=== PATIENT | female | born 1960 | race Caucasian/White ===

== ENCOUNTER 2019-06-05 10:11 | Outpatient (CLI) | payer OTHER, SELFPAY ==
[2019-06-05 10:26] LABS: Basophils Absolute Auto 0.05 K/mm3 (0.00-0.10); Basophils Percent Auto 0.7 % (0.0-1.0); Eosinophils Absolute Auto 0.22 K/mm3 (0.02-0.50); Eosinophils Percent Auto 3.1 % (1.0-6.0); Hematocrit 36.7 % (35.0-49.0); Hemoglobin 12.3 g/dL (12.0-15.0); Immature Granulocyte Absolute 0.03 K/mm3 (0.00-0.00); Immature Granulocyte Percent A 0.4 % (0.0-0.0); Lymphocytes Percent Auto 28.4 % (18.0-42.0); Mean Corpuscular HGB Conc 33.5 g/dL (32.0-36.0); Mean Corpuscular Hemoglobin 27.8 pg (27.0-31.0); Mean Platelet Volume 8.9 fl (9.2-11.8); Monocytes Percent Auto 8.5 % (2.0-11.0); Neutrophils Absolute Auto 4.1 K/mm3 (1.7-7.2); Neutrophils Percent Auto 58.9 % (50.0-70.0); Platelet Count Result 319 K/mm3 (150-420); Red Blood Count 4.42 M/mm3 (4.20-5.40); Red Cell Distribution Width 13.7 % (11.6-14.4)
[2019-06-05 10:41] LABS: Hemoglobin A1C 7.6 % (<5.7)
[2019-06-05 11:31] LABS: Alanine Aminotransferase 33 U/L (14-59); Alkaline Phosphatase 62 U/L (46-116); Anion Gap 15.7 mmol/L (7-16); Aspartate Amino Transferase 16 U/L (15-37); Bilirubin,Total 0.4 mg/dL (0.00-1.00); Blood Urea Nitrogen 22 mg/dL (7-18); Calcium 9.8 mg/dL (8.5-10.1); Carbon Dioxide 28 mmol/L (21-32); Chloride 100 mmol/L (98-108); Cholesterol 186 mg/dL (0-200); Estimated Glomerular Filt Rate > 60; Glucose 157 mg/dL (70-99); HDL Direct 56 mg/dL (40-60); LDL Cholesterol Calculated 76 mg/dL (<130); Osmolality Calculated 294 mOsm/kg (285-295); Potassium 4.7 mmol/L (3.5-5.1); Sodium 139 mmol/L (136-145); Thyroid Stimulating Hormone 3.66 uIU/mL (0.36-3.74); Total Protein 7.6 g/dL (6.4-8.2); Triglycerides 268 mg/dL (0-150)
== END 2019-06-05 10:12 | disposition home or self-care (01) ==
LOC: CHSLAB 10:15
PROVIDERS: PCP Nurse Practitioner Family; Visit Provider Nurse Practitioner Family
DX: E11.59 Type 2 diabetes mellitus with other circulatory complications (principal); I10 Essential (primary) hypertension; E03.9 Hypothyroidism, unspecified
CPT/HCPCS: 36415; 80053; 80061; 83036; 84443; 85025

== ENCOUNTER 2019-12-17 09:58 | Outpatient (CLI) | payer OTHER, SELFPAY ==
[2019-12-18 02:12] LABS: SARS-CoV-2 RNA PCR Positive
== END 2019-12-17 09:59 | disposition home or self-care (01) ==
PROVIDERS: PCP Nurse Practitioner Family; Visit Provider Nurse Practitioner Family
DX: U07.1 COVID-19 (principal); R51 Headache; R53.83 Other fatigue; R05 Cough
CPT/HCPCS: 87635; C9803; U0003

== ENCOUNTER 2020-05-17 08:12 | Outpatient (CLI) | payer OTHER, SELFPAY ==
[2020-05-17 08:44] LABS: Hemoglobin A1C 6.8 % (<5.7)
[2020-05-17 09:37] LABS: Alanine Aminotransferase 46 U/L (14-59); Albumin Level 4.1 g/dL (3.4-5.0); Alkaline Phosphatase 59 U/L (46-116); Anion Gap 11 mmol/L (8-16); Aspartate Amino Transferase 23 U/L (15-37); Bilirubin,Total 0.4 mg/dL (0.00-1.00); Blood Urea Nitrogen 19 mg/dL (7-18); Calcium 9.9 mg/dL (8.5-10.1); Carbon Dioxide 28 mmol/L (21-32); Chloride 99 mmol/L (98-108); Cholesterol 183 mg/dL (0-200); Estimated Glomerular Filt Rate > 60; Glucose 171 mg/dL (70-99); HDL Direct 59 mg/dL (40-60); LDL Cholesterol Calculated 84 mg/dL (<130); Osmolality Calculated 292 mOsm/kg (285-295); Potassium 4.5 mmol/L (3.5-5.1); Sodium 138 mmol/L (136-145); Total Protein 7.6 g/dL (6.4-8.2); Triglycerides 200 mg/dL (0-150)
[2020-05-17 10:41] LABS: Thyroid Stimulating Hormone Reflex 1.19 u/IU/mL (0.36-3.74)
[2020-05-17 16:08] LABS: Creatinine Urine 121.57 mg/dL (40-278); MALB Creatinine Ratio 10.6 mg/g (0-30); Microalbumin Urine Random < 13.0 mg/L
== END 2020-05-17 08:13 | disposition home or self-care (01) ==
PROVIDERS: PCP Family Medicine; Visit Provider Family Medicine
DX: E11.9 Type 2 diabetes mellitus without complications (principal); E03.9 Hypothyroidism, unspecified
CPT/HCPCS: 36415; 80053; 80061; 82043; 83036; 84443

== ENCOUNTER 2020-05-18 10:03 | Outpatient (CLI) | payer OTHER, SELFPAY ==
--- NOTE | 2020-05-19 12:19 | WPDPFTINT ---
PFT Interpretation PFT Interpretation: DOS: 05/18/2020 REQUESTING: Eliud Browning MD REASON FOR TESTING: post COVID PULMONARY FUNCTION TESTS Results are reliable and reproducible. Spirometry: FEV1 101%, FVC 96%, FEV1% is 103%, normal. No change with bronchodilator. Lung volumes: TLC 97%. RV78%. Normal RV/TLC ratio. No air trapping. Raw 102%, normal. Diffusion: DLCO 80%, normal. Flow volume loop: Normal. IMPRESSION: Normal spirometry, lung volumes, airway resistance and diffusion. No change with bronchodilator. Vero Yun MD
== END 2020-05-18 10:04 | disposition home or self-care (01) ==
LOC: CHSCARD 10:05
PROVIDERS: PCP Family Medicine; Visit Provider Family Medicine
DX: J45.909 Unspecified asthma, uncomplicated (principal); Z86.16 Personal history of COVID-19
CPT/HCPCS: 94060; 94726; 94729

== ENCOUNTER 2020-05-22 07:23 | Outpatient (CLI) | payer OTHER, SELFPAY ==
--- NOTE | 2020-05-22 09:00 | EST_ITS ---
Patient Info Name: Fidelina Solis Age: 60 years : 1960 Gender: Female Ht: 67 in Wt: 260 lbs BSA: 2.42 m2 HR: 84 bpm BP: 108 / 48 mmHg Heart Rhythm: Sinus Rhythm Technical Quality: Excellent Exam Date: 05/22/2020 8:50 AM Exam Location: [facility] Patient Status: Outpatient Admit Date: 05/22/2020 Staff Ordering Physician: Eliud Browning DO Attending Provider: Eliud Browning DO Exercise Technologist: Eneida Jaramillo CRT Exercise Physician: Tonya Locke CEP Exam Type: CA stress marilyn w NM Study Info Indications Dyspnea - A nuclear stress test was performed. History/Risk Factors Hypertension: Yes Chronic Lung Disease: Yes Diabetes Mellitus: Yes History/Risk Factors Dyspnea. Summary 1. 1. Negative lexiscan stress test for ischemic ST changes by ECG criteria. 2. 2. Stable hemodynamics throughout the test. 3. 3. Nuclear scan to follow and will be reported separately. Please correlate with it. Protocol: LEXISCAN Stress ECG Details Stage: REST Duration (min): 2 min : 55 sec HR (bpm): 87 SBP (mmHg): 108 DBP (mmHg): 48 Stage: REST Duration (min): 7 min : 40 sec HR (bpm): 83 SBP (mmHg): 108 DBP (mmHg): 48 Stage: STAGE 1 Duration (min): 0 min : 9 sec HR (bpm): 84 SBP (mmHg): 108 DBP (mmHg): 48 Stage: RECOVERY Duration (min): 0 min : 50 sec HR (bpm): 105 SBP (mmHg): 108 DBP (mmHg): 48 Stage: RECOVERY Duration (min): 1 min : 50 sec HR (bpm): 97 SBP (mmHg): 91 DBP (mmHg): 52 Stage: RECOVERY Duration (min): 2 min : 50 sec HR (bpm): 95 SBP (mmHg): 98 DBP (mmHg): 55 Stage: RECOVERY Duration (min): 3 min : 50 sec HR (bpm): 91 SBP (mmHg): 99 DBP (mmHg): 60 Stage: RECOVERY Duration (min): 4 min : 50 sec HR (bpm): 94 SBP (mmHg): 99 DBP (mmHg): 62 Stage: RECOVERY Duration (min): 5 min : 50 sec HR (bpm): 90 SBP (mmHg): 101 DBP (mmHg): 64 Stage: RECOVERY Duration (min): 6 min : 8 sec HR (bpm): 92 SBP (mmHg): 101 DBP (mmHg): 64 Rest HR: 83 bpm Peak HR: 105 bpm Rest Sys BP: 108 mmHg Peak Sys BP: 101 mmHg Max Pred HR: 160 bpm % Max Pred HR: 66 % Target HR: 136 bpm Max RPP: 10,605 bpm*mmHg Termination Reason: Completion of Protocol Cardiac Symptoms: Chest discomfort Total Time: 0 min : 9 sec Rest Cavazos BP: 48 mmHg Peak Cavazos BP: 64 mmHg Total Dose: 0.4 mg Resting ECG Normal sinus rhythm, low voltage in precordial leads. Stress ECG No ST-T changes. Arrhythmias No arrhythmias were observed during the examination. Report Signatures
--- NOTE | 2020-05-22 09:57 | WPDCARIOSTRE ---
Nuclear Stress Test INDICATIONS Indications: Chest pain PROCEDURE Procedure Performed: Myocardial Perf Spect-Multi Procedure: Patient was injected with Lexiscan bolus and after injection, she was injected with 34.9 mCi of cardiolyte. Multiple tomographic images were obtained. These are of good quality. There is evidence of large size, severe anterior perfusion defect on stress imaging. A separate resting images were obtained after patient was injected with 10.7 mCi of cardiolyte. Multiple tomographic images were obtained. These are of good quality. There is evidence of small size, moderate severity anterior perfusion defect on rest imaging. CONCLUSION Conclusion: 1. Abnormal myocardial perfusion imaging demonstrating worsened perfusion defect suggestive of robin-infarct ischemia involvling anterior wall. 2. Left ventriculogram demonstrates normal ejection fraction of 65%. No wall motion abnormalities. 3. TID score is normal at 1.03.
== END 2020-05-22 07:24 | disposition home or self-care (01) ==
LOC: CHSIMG 07:27
PROVIDERS: PCP Family Medicine; Visit Provider Family Medicine
DX: R06.02 Shortness of breath (principal); R68.89 Other general symptoms and signs; R07.9 Chest pain, unspecified; R06.00 Dyspnea, unspecified
CPT/HCPCS: 78452; 93017; A9502; J2785

== ENCOUNTER → 2020-06-16 00:16 | Outpatient (CLI) | payer OTHER, SELFPAY ==
[2020-06-16 17:44] LABS: SARS-CoV-2 RNA PCR Positive
== END ==
PROVIDERS: PCP Family Medicine; Visit Provider Specialist
DX: U07.1 COVID-19 (principal)
CPT/HCPCS: C9803; U0003; U0005

== ENCOUNTER 2020-06-26 01:51 | Day surgery (SDC) | payer OTHER, SELFPAY ==
[2020-06-16 18:05] VITALS: BMI 40.8
[2020-06-26] VITALS (16 sets, daily range): BP systolic 98–133; BP diastolic 60–103; PULSE 66–91; RESP 14–19; TEMP 35.8–36.8; O2SAT 96–100; BMI 41.8
[2020-06-26 07:55] LABS: Basophils Absolute Auto 0.1 K/mm3 (0.0-0.1); Basophils Percent Auto 0.7 % (0.2-1.2); Eosinophils Absolute Auto 0.2 K/mm3 (0-0.3); Hematocrit 37.8 % (37.0-47.0); Hemoglobin 12.6 g/dL (12.0-15.0); Immature Granulocyte Absolute 0.03 K/mm3 (0.00-0.031); Immature Granulocyte Percent A 0.4 % (0-0.5); Lymphocytes Absolute Auto 1.94 K/mm3 (0.9-3.2); Lymphocytes Percent Auto 28.2 % (18.3-44.2); Mean Corpuscular HGB Conc 33.3 g/dl (32-36); Mean Corpuscular Hemoglobin 27.3 pg (26-34); Mean Corpuscular Volume 81.8 fl (80-100); Mean Platelet Volume 8.8 fl (7.4-10.4); Monocytes Absolute Auto 0.5 K/mm3 (0.1-0.6); Monocytes Percent Auto 7.4 % (2.6-8.5); Neutrophils Absolute Auto 4.2 K/mm3 (1.3-6.7); Neutrophils Percent Auto 60.3 % (45.5-73.1); Platelet Count Result 310 k/mm3 (150-375); Red Blood Count 4.62 M/mm3 (4.2-5.4); Red Cell Distribution Width 14.1 % (11.5-14.5); White Blood Count 6.9 K/mm3 (4.5-10.0)
[2020-06-26 08:05] LABS: INR 0.9; Prothrombin Time 12.3 Seconds (11.1-14.7)
[2020-06-26 08:07] LABS: Anion Gap 9 mmol/L (8-16); Blood Urea Nitrogen 26 mg/dL (7-17); Calcium 10.1 mg/dL (8.4-10.2); Carbon Dioxide 28 mmol/L (22-30); Chloride 99 mmol/L (98-107); Estimated CRCL calculation 88 ml/min; Estimated Glomerular Filt Rate > 60; Glucose 147 mg/dL (65-105); Potassium 4.5 mmol/L (3.4-5.0); Sodium 136 mmol/L (137-145)
--- NOTE | 2020-06-26 08:44 | WPDMODSED ---
Moderate Sedation Note-Pt Data Patient Data Diagnosis: Exertional dyspnea morbid obesity previous bowden virus abnormal nuclear stress test Present Complaint: this is a 60-year-old woman who is morbidly obese who had bowden virus back in the fall of 2019. Since then she has been reporting shortness of breath with activity. She had a nuclear stress test that was electrocardiographically negative but apparently there were some scintigraphic abnormalities prompting recommendation to perform an angiogram Procedure to be performed/Plan: left heart catheterization Allergies Allergy/AdvReac Type Severity Reaction Status Date / Time Penicillins Allergy Intermediate rash Verified 06/09/20 09:59 Home Medications Medication Instructions Recorded Confirmed Type aspirin 81 mg tablet,delayed 81 mg PO DAILY 06/09/20 06/16/20 History release atorvastatin 20 mg PO DAILY 06/16/20 06/16/20 History cetirizine [Zyrtec] 10 mg PO DAILY PRN 06/16/20 06/16/20 History cholecalciferol (vitamin D3) 50 mcg PO DAILY 06/16/20 06/16/20 History [Vitamin D3] levothyroxine 125 mcg PO DAILY 06/16/20 06/16/20 History lisinopril-hydrochlorothiazide 1 tablet PO DAILY 06/16/20 06/16/20 History metformin 1,000 mg PO BID 06/16/20 06/16/20 History oogzuboinsdf-axp-yurl-FA-vit K 1 tablet PO DAILY 06/16/20 06/16/20 History [Adults Multivitamin] omega-3 fatty acids [[place] 3 Fish 1,000 mg PO DAILY 06/16/20 06/16/20 History Oil Concentrate] sertraline 100 mg PO DAILY 06/16/20 06/16/20 History Current Medications: Active Medications Sodium Chloride (Normal Saline Iv) 500 mls @ 100 mls/hr IV CONT .Q5H TJ Sedation/Anesthesia: No previous sedation/anesthesia problems (including family history). [facility] Past Medical History Medical History COVID-19 Hyperlipidemia associated with type 2 diabetes mellitus Hypertension associated with diabetes Hypothyroidism Major depressive disorder, recurrent Obesity, Class II, BMI 35-39.9 Osteoarthritis of knee Reactive airway disease Type 2 diabetes mellitus Surgical History Surgical History History of adenoidectomy History of bilateral tubal ligation History of knee replacement LT total knee History of tonsillectomy Family History Family History Mother Depression Hypertension Family history of coronary artery disease Father Family history of coronary artery disease Sibling Family history of coronary artery disease Other Diabetes mellitus Family history of allergic disorder Family history of diabetes mellitus in first degree relative Family history of rheumatoid arthritis Social History Social History Smoking status: Never smoker Alcohol intake: current Alcohol use details: very rarely Substance use: never Substance use type: does not use Living arrangements: alone 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 Gender identity (if verbalized by the patient): Female Spiritual care concerns: No Mod Sed Physical Exam Physical Exam Pre Procedural Exam: Normal: Throat, Airway, Lungs, Heart Size, Heart Rate, Heart Rhythm, Neuro Exam and Extremities and Variation: Appearance ( pleasant obese woman in no distress) Hours since solid foods: 12 Hours since liquid intake: 12 Internal Medicine - PN: Obj Da Vital Signs Vital Signs: Vital Signs - 24 hr 06/26/20 07:45 Temperature 36.8 C Pulse Rate 91 Respiratory Rate 19 Blood Pressure 133/103 H Pulse Oximetry 100 Meds/Results Medications: Active Medications Generic Name Dose Route Start Last Admin Trade Name Freq PRN Reason Stop Dose Admin Sodium Chloride 500 mls @ 100 mls/hr 06/26/20 07:40 Normal Saline Iv IV CONT .Q5H TJ Labs CBC & Chem 7: 06/26/20 07:47
--- NOTE | 2020-06-26 09:11 | P.PCNCC_ITS ---
Cardiac Cath Procedure Note Date of procedure:: 06/26/20 Performing physician:: Oscar Mills MD Indication:: abnormal nuclear stress test morbid obesity exertional dyspnea Brief clinical history:: this is a 60-year-old woman without any prior history of known coronary artery disease. She is undergoing evaluation because of SON. Her symptoms began in the fall following bowden virus infection. Nuclear stress test suggests a subtle anterior wall perfusion abnormality. Electrocardiographic findings were negative. Procedure Procedure performed:: Left ventriculography coronary angiography Sedation/Medication given:: fentanyl 50 mg Versed 2 mg case start time 8:54 a.m. case end time 9:08 a.m. Access site:: right femoral artery Estimated blood loss:: 10-15 cc Procedure note:: patient was brought to the cardiac catheterization lab in the postabsorptive state where the right femoral triangle with prepared and draped in the usual fashion. Anesthesia was provided with 1% lidocaine infiltrated locally. Using the modified Seldinger technique a 5 [place] vascular sheath was placed into the right femoral artery. After this left heart catheterization was carried out. A 5 [place] angled pigtail catheter was used to measure left-sided hemodynamics as well as to injected LV g in the SHELLEY projection. This catheter was then removed. A 5 [place] FL4 catheter was used to engage inject the left coronary artery and a 5 [place] JR4 catheter was used to engage inject the right coronary artery. The cineangiograms were then reviewed. An angiogram was done of the femoral artery through the sheath after which it was determined the sheath will be removed with direct manual compression. Procedure was well tolerated there were no apparent complications he left the labeling associate with no evidence of a groin hematoma. Findings:: Hemodynamics: Central aortic pressure is 116/66 left ventricle 116/3 end-diastolic pressure 16 there is no systolic gradient on pullback across the aortic valve. Left ventricle: The LV is normal in size all segments contract appropria tely the global ejection fraction is 50-55% by visual estimation. There was no regional wall motion abnormalities identified. The left main coronary artery is nicely patent the left anterior descending is a medium caliber artery extending down to around the apex. The LAD and its branches are angiographically free of disease. The circumflex is a large caliber artery and gives rise to marginal branches and a large posterior branch as well. The trunk of the circumflex has minimal luminal irregularities but no flow-limiting disease. Right coronary artery is a large caliber vessel dominant to the posterior circulation. The right coronary artery has some ectatic enlargement in the 2nd portion and some mild stenosis prior to that. There is no view where this appears to be flow limiting angiographically this represents about 30% stenosis. Conclusion:: 1. right coronary dominant circulation with mild plaquing in the circumflex trunk and mid RCA but with no flow-limiting disease 2. angiographically not diseased LAD with no findings that would explain an anterior perfusion deficit on her nuclear stress test. 3. Preserved left ventricular systolic function Oscar Mills MD [facility]
--- NOTE | 2020-06-26 14:26 | SUR.PHASEII ---
Pt assisted to chair from bed at 1405. Pt denies any complaints. Dressing to R groin remain dry and intact. No signs of bleeding or hematoma noted. VSS. Will continue to monitor.
--- NOTE | 2020-06-26 14:44 | PM.DS ---
DS: Admitting Diagnosis Admitting Diagnosis Admitting Diagnosis: Exertional dyspnea? Ischemia equivalent recent Coronavirus morbid obesity DS: Discharge Diagnosis Discharge Diagnosis (1) CAD (coronary artery disease): Code(s): I25.10 - Atherosclerotic heart disease of [place] coronary artery without angina pectoris Status: Acute DS: Summary Hospital Course Reason for hospitalization: outpatient catheterization Hospital Course: this is a 60-year-old woman who has no previous history of coronary disease who has been reporting symptoms of problematic SON since she had bowden virus several months ago. Catheterization was recommended because a stress test that was done as an outpatient with modestly abnormal. The stress test suggested anterior wall ischemia. Procedure was done uneventfully right groin without any complication. She was found to have no disease in the left main or LAD. She did have modest diffuse plaquing in the trunk of her circumflex as well as a mild 30% RCA stenosis followed by some ectatic delete the dilated area. There were no lesions or disease that would explain an anterior nuclear defect and this was felt to be a false positive and her SON therefore does not appear to be mediated by myocardial ischemia. Left ventricular systolic function was found to be nicely preserved. See the separately dictated catheterization report for all these details. Following bed rest the patient is stable and appears to be a good candidate for discharge there is no evidence of groin hematoma. Status at Discharge Functional status at discharge: independent ambulation Time Spent with Patient Time attestation: Total time spent providing and/or coordinating discharge services: Time spent: Less than 30 minutes Exam Const: General: comfortable and no acute distress Other: Obese white female no apparent distress HENMT: Mouth: Yes moist mucous membranes Eyes: Sclera: sclerae normal Pupils: Equal, round and reactive pupils present Neck: Neck: supple and no JVD Resp: Effort & Inspection: normal respiratory effort Auscultation: clear to auscultation bilaterally Cardio: Rate: regular rate Rhythm: regular rhythm Other: PMI nondisplaced no murmur no gallop no rub GI: GI Palp: Yes Soft to palpation Auscultation: normal bowel sounds Skin: General skin exam: normal color Extrem: General: normal to inspection DS: Data Data Completed and Pending Labs on day of discharge: Labs from last 24 hours 06/26/20 06/26/20 06/26/20 07:47 07:47 07:47 WBC 6.9 RBC 4.62 Hgb 12.6 Hct 37.8 MCV 81.8 MCH 27.3 MCHC 33.3 RDW 14.1 Plt Count 310 MPV 8.8 Immature Gran % (Auto) 0.4 Neut % (Auto) 60.3 Lymph % (Auto) 28.2 [place] % (Auto) 7.4 Eos % (Auto) 3.0 Baso % (Auto) 0.7 Lymph # (Auto) 1.94 [place] # (Auto) 0.5 Eos # (Auto) 0.2 Baso # (Auto) 0.1 Abs Immat Gran (auto) 0.03 Absolute Neuts (auto) 4.2 Absolute Nucleated RBC 0.0 Nucleated RBC % 0.0 PT 12.3 INR 0.9 Sodium 136 L Potassium 4.5 Chloride 99 Carbon Dioxide 28 Anion Gap 9 BUN 26 H Creatinine 0.80 Estim Creat Clear Calc 88 Estimated GFR > 60 Glucose 147 H Calcium 10.1 Discharge Plan Discharge Patient Disposition: Home, Self-Care Patient Instructions: Moderate Sedation (DC), Left Heart Catheterization (DC) Stand Alone Forms: General Discharge Instructions Follow-up/Referrals: Oscar Mills MD [Physician] - Discharge Medications: No Action aspirin [Adult Aspirin Regimen] 81 mg tablet,delayed release (DR/EC) 81 mg PO DAILY RF: 0 cetirizine [Zyrtec] 10 mg Tablet 10 mg PO DAILY PRN (Reason: Allergy Symptoms) RF: 0 [place] 3 Fish Oil Concentrate Capsule 1,000 mg PO DAILY RF: 0 cholecalciferol (vitamin D3) [Vitamin D3] 50 mcg (2,000 unit) Tablet 50 mcg PO DAILY RF: 0 Adults Multivitamin 18 mg iron-400
--- NOTE | 2020-06-26 16:00 | SUR.PHASEII ---
REVIEWED DISCHARGE INSTRUCTIONS AND FOLLOW UP CARE W/ PT. QUESTIONS ANSWERED. VOICED UNDERSTANDING. R. GROIN SITE REMAINS SOFT, NONTENDER. NO BLEEDING OR HEMATOMA NOTED. GAUZE AND TEGADERM DRESSING C/D/I. R. PEDAL PULSE 3+ STRONG. VOICES NO C/O. NO DISTRESS NOTED. DISCHARGED HOME, OUT VIA WC, WITH ALL PERSONAL BELONGINGS AND DISCHARGE PACKET TO DAUGHTER'S WAITING CAR.
== END 2020-06-26 16:00 | disposition home or self-care (01) ==
PROVIDERS: PCP Family Medicine; Visit Provider Specialist
PROC: 4A023N7 Measurement of Cardiac Sampling and Pressure, Left Heart, Percutaneous Approach (ICD-10-PCS; CPT 93452; principal; 2020-06-26 08:30)
DX: I25.10 Atherosclerotic heart disease of native coronary artery without angina pectoris (principal); R94.39 Abnormal result of other cardiovascular function study; R06.09 Other forms of dyspnea; E66.01 Morbid (severe) obesity due to excess calories; Z68.41 Body mass index [BMI] 40.0-44.9, adult; E11.9 Type 2 diabetes mellitus without complications; E78.5 Hyperlipidemia, unspecified; E03.9 Hypothyroidism, unspecified; J45.909 Unspecified asthma, uncomplicated; F33.9 Major depressive disorder, recurrent, unspecified; Z86.16 Personal history of COVID-19; Z79.84 Long term (current) use of oral hypoglycemic drugs; Z79.82 Long term (current) use of aspirin
CPT/HCPCS: 36415; 80048; 85025; 85610; 93458; C1887; C1894; J1644; J2250; J3010; J7040

== ENCOUNTER 2020-07-11 07:55 | Outpatient (CLI) | payer OTHER, SELFPAY ==
--- NOTE | 2020-07-11 08:00 | ECHO_ITS ---
Patient Info Name: Fidelina Solis Age: 60 years : 1960 Gender: Female Ht: 67 in Wt: 260 lbs BSA: 2.42 m2 HR: 67 bpm BP: 122 / 75 mmHg Heart Rhythm: Sinus Rhythm Technical Quality: Fair Exam Date: 07/11/2020 7:59 AM Exam Location: [facility] Patient Status: Outpatient Admit Date: 07/11/2020 Staff Ordering Physician: Richy Hackett DO Director Risk: Yolanda Cruz RDCS Attending Provider: Richy Hackett DO Referring Physician: Lew CASTORENA; Exam Type: CA echo dop color flow w con Study Info Indications R06.00 - Dyspnea, unspecified Complete two-dimensional, color flow and Doppler transthoracic echocardiogram is performed with contrast to opacify the left ventricle and to improve the deliniation of the left ventricle endocardial borders. Strain analysis performed. Contrast/Agitated Saline Contrast/Ag. Saline: Definity Amount: 4.00 ml New IV Access: Antecubital Space and Left Site Condition: No extravasation, Site dressing applied and IV removed History/Risk Factors Hypertension: Yes Dyslipidemia: Yes Congenital Heart Disease (CHD): No Diabetic Therapy: Oral Peripheral Arterial Disease (PAD): No Myocardial Infarction (NV): No Chronic Lung Disease: Yes Obesity: Yes Renal Disease: No Coronary Artery Disease (CAD) No Congestive Heart Failure (CHF): No Cardiomyopathy/LV Systolic Dysfunction: No Diabetes Mellitus: Type II COPD: No Cerebrovascular Disease: No Family History: Diabetes Mellitus, Coronary Artery Disease Deep Vein Thrombosis (DVT): None Dialysis: None Frailty Scale (CSHA): 2: Well Cardiac Arrest: No Summary 1. Left ventricular chamber dimension is normal. 2. Definity contrast administered improved wall motion interpretation. 3. Left ventricular systolic function is normal, estimated at 55-60%. 4. The left ventricular diastolic function is grade I diastolic dysfunction. 5. E/e '9 is minimally elevated. 6. Global longitudinal strain is mildly abnormal at -16.5%. 7. Left atrial chamber dimension is mildly enlarged. 8. There is mild mitral valve regurgitation. 9. No pulmonary hypertension, estimated pulmonary arterial systolic pressure is 24 mmHg. Recommendations * Continue medical therapy for diabetes. Left Ventricle E/e '9 is minimally elevated. Global longitudinal strain is mildly abnormal at -16.5%. Definity contrast administered improved wall motion interpretation. Left ventricular chamber dimension is normal. Left ventricular systolic function is normal, estimated at 55-60%. The left ventricular diastolic function is grade I diastolic dysfunction. Right Ventricle Right ventricular chamber dimension is normal. Right ventricular systolic function is normal. Left Atria Left atrial chamber dimension is mildly enlarged. Right Atria Right atrial chamber dimension is normal. Aortic Valve The aortic valve is trileaflet. There is no aortic valve stenosis. There is no aortic valve regurgitation. Pulmonic Valve There is no pulmonic regurgitation. Mitral Valve There is no mitral valve stenosis. There is mild mitral valve regurgitation. Tricuspid Valve There is no tricuspid valve regurgitation. No pulmonary hypertension, estimated pulmonary arterial systolic pressure is 24 mmHg. Pericardium/Pleural There is no pericardial effusion. Inferior Vena Cava Normal inf
== END 2020-07-11 07:56 | disposition home or self-care (01) ==
LOC: CHSIMG 07:57
PROVIDERS: PCP Family Medicine; Visit Provider Internal Medicine Cardiovascular Disease
DX: R06.00 Dyspnea, unspecified (principal)
CPT/HCPCS: C8929

== ENCOUNTER 2021-01-08 09:29 | Outpatient (CLI) | payer OTHER, SELFPAY ==
--- NOTE | ~2021-01-08 | MMUS_ITS ---
EXAMINATION: MM diagnostic sumi BI w evan, US breast RT limited HISTORY: Follow-up right breast mass TECHNIQUE: Additional 3-D tomosynthesis images of the breasts were performed and synthetic 2-D images were generated. CAD analysis was submitted and interpreted. High resolution Limited right breast ult rasound was performed. COMPARISON: 01/19/2019 BREAST PARENCHYMAL COMPOSITION: Breast composed of scattered areas of fibroglandular density. FINDINGS: MAMMOGRAPHIC FINDINGS: There is a benign-appearing mass in the lower inner quadrant of the right breast, middle third contai talya layering milk of calcium. No mammographic evidence for malignancy in the left breast. ULTRASOUND: Limited right breast ultrasound: At 2:00 near the nipple there is a 5 mm cyst. At 3:00, 3 cm from the nipple, there is a 7 mm cyst corresponding to the mammographic finding. At 3:00, 3 cm from the nippl e, there is a benign intramammary lymph node measuring 6 mm. IMPRESSION: 1. No evidence for malignancy in either breast. Benign findings. 2. Routine yearly screening mammogram and regular clinical breast examination are recommended. BI-RADS Category 2: Benign finding(s). Reviewed, dictated and finalized at location B. IMPRESSION: 1. No evidence for malignancy in either breast. Benign findings. 2. Routine yearly screening mammogram and regular clinical breast examination a re recommended. BI-RADS Category 2: Benign finding(s).
== END 2021-01-08 09:30 | disposition home or self-care (01) ==
LOC: CHSIMG 09:31
PROVIDERS: PCP Family Medicine; Visit Provider Family Medicine
DX: R92.8 Other abnormal and inconclusive findings on diagnostic imaging of breast (principal)
CPT/HCPCS: 76642; 77062; 77066; G0279

== ENCOUNTER 2021-10-10 10:08 | Outpatient (CLI) | payer OTHER, SELFPAY ==
--- NOTE | 2021-10-10 11:30 | NEURO_ITS ---
Impression: # Complains of pain and numbness of hands. # Left moderate Carpal Tunnel Syndrome. # Right ulnar neuropathy across the elbow. # Normal needle/EMG exam. Nerve Conduction Studies Anti Sensory Summary Table Stim Site NR Peak (ms) P-T Amp (?V) Site1 Site2 Delta-P (ms) Dist (cm) Miah (m/s) Left Median Anti Sensory (2-3nd Digit) NO RESPONSE Wrist NR Wrist 2-3nd Digit 14.0 Wrist NR Wrist 2-3nd Digit 14.0 Right Median Anti Sensory (2-3nd Digit) Wrist 5.2 12.6 Wrist 2-3nd Digit 5.2 14.0 27 Wrist 5.3 11.5 Wrist 2-3nd Digit 5.2 14.0 27 Left Radial Anti Sensory (Base 1st Digit) Wrist 2.2 11.2 Wrist Base 1st Digit 2.2 0.0 Right Radial Anti Sensory (Base 1st Digit) Wrist 1.9 8.9 Wrist Base 1st Digit 1.9 0.0 Left Ulnar Anti Sensory (5th Digit) Wrist 2.3 22.5 Wrist 5th Digit 2.3 14.0 61 Right Ulnar Anti Sensory (5th Digit) Wrist 2.6 21.0 Wrist 5th Digit 2.6 14.0 54 Motor Summary Table Stim Site NR Onset (ms) O-P Amp (mV) Site1 Site2 Delta-0 (ms) Dist (cm) Miah (m/s) Left Median Motor (Abd Poll Brev) Wrist 6.3 1.5 Elbow Wrist 4.2 26.0 62 Elbow 10.5 0.4 Right Median Motor (Abd Poll Brev) Wrist 3.4 2.2 Elbow Wrist 5.0 27.0 54 Elbow 8.4 2.4 Left Ulnar Motor (Abd Dig Minimi) Wrist 2.7 6.2 A Elbow Wrist 4.5 27.0 60 A Elbow 7.2 4.6 Right Ulnar Motor (Abd Dig Minimi) Wrist 2.5 6.4 A Elbow Wrist 5.6 28.0 50 A Elbow 8.1 5.3 B Elbow Wrist 3.7 21.0 57 B Elbow 6.2 5.0 F Wave Studies NR F-Lat (ms) L-R F-Lat (ms) Left Median (Mrkrs) (Abd Poll Brev) 27.36 1.06 Right Median (Mrkrs) (Abd Poll Brev) 28.42 1.06 Left Ulnar (Mrkrs) (Abd Dig Min) 28.79 1.45 Right Ulnar (Mrkrs) (Abd Dig Min) 27.34 1.45 EMG Side Muscle Nerve Root Ins Act Fibs Amp Dur Recrt Comment Right 1stDorInt Ulnar C8-T1 Nml Nml Nml Nml Nml Right Ext Indicis Radial (Post Int) C7-8 Nml Nml Nml Nml Nml Right Ext Digitorum Radial (Post Int) C7-8 Nml Nml Nml Nml Nml Right BrachioRad Radial C5-6 Nml Nml Nml Nml Nml Right PronatorTeres Median C6-7 Nml Nml Nml Nml Nml Right Abd Poll Brev Median C8-T1 Nml Nml Nml Nml Nml Left 1stDorInt Ulnar C8-T1 Nml Nml Nml Nml Nml Left Ext Indicis Radial (Post Int) C7-8 Nml Nml Nml Nml Nml Left Ext Digitorum Radial (Post Int) C7-8 Nml Nml Nml Nml Nml Left BrachioRad Radial C5-6 Nml Nml Nml Nml Nml Left PronatorTeres Median C6-7 Nml Nml Nml Nml Nml Left Abd Poll Brev Median C8-T1 Nml Nml Nml Nml Nml MTDD
== END 2021-10-10 10:09 | disposition home or self-care (01) ==
PROVIDERS: PCP Family Medicine; Visit Provider Family Medicine
DX: G56.02 Carpal tunnel syndrome, left upper limb (principal); G56.21 Lesion of ulnar nerve, right upper limb
CPT/HCPCS: 95886; 95911

== ENCOUNTER 2021-11-04 18:05 | Outpatient (CLI) | payer OTHER, SELFPAY ==
--- NOTE | ~2021-11-04 | XR_ITS ---
XR wrist RT min 3V 11/04/2021 18:27 Indication: Right wrist pain Procedure: 4 views right wrist Comparison: No prior studies for comparison. Findings: There is osteoarthritis of the triscaphe, first carpal metacarpal, first MCP and IP joints. No fracture. No significant soft tissue abnormality. No foreign bodies. Impression: 1: Moderate polyarticular osteoarthritis. Reviewed, dictated and finalized at location A. Impression: 1: Moderate polyarticular osteoarthritis.
--- NOTE | ~2021-11-04 | XR_ITS ---
XR wrist LT min 3V 11/04/2021 18:26 Indication: Left wrist pain Procedure: 4 views left wrist Comparison: No prior studies for comparison. Findings: There is osteoarthritis of the triscaphe and first carpometacarpal joints. There is a corti cated ossific density ventral to the carpal bones on the oblique image, likely of no clinical signifi cance. No acute fracture or traumatic malalignment. Impression: 1: Polyarticular osteoarthritis of the wrist. Reviewed, dictated and finalized at location A. Impression: 1: Polyarticular osteoarthritis of the wrist.
== END 2021-11-04 18:06 | disposition home or self-care (01) ==
LOC: CHSIMG 18:08
PROVIDERS: PCP Family Medicine; Visit Provider Orthopaedic Surgery
DX: M25.532 Pain in left wrist (principal); M25.531 Pain in right wrist
CPT/HCPCS: 73110

== ENCOUNTER 2021-11-18 16:16 | Outpatient (CLI) | payer OTHER, SELFPAY ==
--- NOTE | 2021-11-18 16:19 | ECG_ITS ---
Measurements Intervals [place] Rate: 84 P: 47 MA: 152 QRS: 24 QRSD: 83 T: 56 QT: 362 QTc: 429 Interpretive Statements SINUS RHYTHM LOW QRS VOLTAGE IN PRECORDIAL LEADS [QRS DEFLECTION < 1.0 mV IN CHEST LEADS] OTHERWISE WITHIN NORMAL LIMITS NO PREVIOUS ECG AVAILABLE FOR COMPARISON Electronically Signed On 11-19-2021 17:15:26 CDT by Oscar Mills M.D.
[2021-11-18 16:43] LABS: Anion Gap 11 mmol/L (8-16); Blood Urea Nitrogen 27 mg/dL (7-18); Calcium 9.4 mg/dL (8.5-10.1); Carbon Dioxide 25 mmol/L (21-32); Chloride 97 mmol/L (98-108); Estimated Glomerular Filt Rate 47; Glucose 123 mg/dL (70-99); Osmolality Calculated 282 mOsm/kg (285-295); Potassium 4.8 mmol/L (3.5-5.1); Sodium 133 mmol/L (136-145)
== END 2021-11-18 16:17 | disposition home or self-care (01) ==
LOC: CHSLAB 16:19
PROVIDERS: PCP Family Medicine; Visit Provider Anesthesiology
DX: E11.9 Type 2 diabetes mellitus without complications (principal)
CPT/HCPCS: 36415; 80048; 93005

== ENCOUNTER 2021-11-22 00:44 | Day surgery (SDC) | payer OTHER, SELFPAY ==
[2021-11-14 09:23] VITALS: BMI 41.3
--- NOTE | 2021-11-14 09:35 | PC.NURSE ---
Report to the Outpatient Waiting Room, entrance under the green pavilion located off [facility], at time 0600 on date 11/22/21. OR Time: 0730. - You and your visitor will be asked to self-screen and do not enter if you have any COVID symptoms. - Only one visitor and NO children visitors are allowed at this time. - The patient visitor is requested to leave or wait in car when not with patient due to restrictions. - A mask is required within the hospital. Patients may have clear liquids (water, carbonated beverages, clear teas, apple juice) until 3 hours prior to surgery with a maximum of 20 ounces. - No food from midnight until time of surgery Take the following medications with a SIP of water the morning of surgery: LEVOTHYROXINE, SERTRALINE Medications to discontinue per physician: VITAMINS/SUPPLEMENTS Date to take last dose: 11/18/21 Please no make-up, nail bangladeshi, hairspray, perfume, deodorant, or body powder the day of surgery. No jewelry (including any body piercings) or valuables the day of surgery, leave them at home. Please take a shower or bath the night before, or the morning of, surgery with an antibacterial soap. Wear comfortable, loose fitting clothing. - Jewelry must be removed prior to entering the operating room. Rings and piercings that are not removed may be cut off. - The hospital will not accept responsibility for valuables. - Please leave all valuables, including medications, at home the day of surgery. If you are going home after surgery, a licensed day haul or farm charter bus driver must drive you home. - NO public transportation without another adult. - We recommend that an adult stay with you for 24 hours following discharge. - We also recommend that you do not drive, make important decision, drink alcoholic beverages, or take any drugs that were not prescribed by your health care provider for at least 24 hours after your discharge time. Follow any additional instructions given to you from your surgeon. If you or anyone in your household have experienced Covid symptoms in the past week, please notify your surgeon or the nurse liaison at the phone number below for possible testing. Telephone instructions given to PT - ARYAN GUDION and asked if any additional questions and then verbalized understanding. Patient advised to call surgeon office or pre surgery nurse liaison [phone] if any additional questions.
[2021-11-22] MEDS: ACETAMINOPHEN 500 MG TABLET 1000 MG PO (06:50)
[2021-11-22 06:51] LABS: Glucose Point of Care 146 mg/dl (65-105)
[2021-11-22] MEDS: LACTATED RINGERS 1,000 ML 30 ML IV CONT (07:00)
--- NOTE | 2021-11-22 07:10 | WPDANESEPPF ---
Anes - Initial Pre Proc Eval Procedure: Operation Date: 11/22/21 07:30 Proposed Procedures p Left Carpal Tunnel Release - Narciso Flor MD Date/Time: 11/22/21 07:10 Surgeon: Narciso Flor MD Pre Op Diagnosis: left carpal tunnel syndrome Patient Data Age: 61 Gender: F Height: 1.7 m Weight: 119.75 kg Allergies Allergy/AdvReac Type Severity Reaction Status Date / Time Penicillins Allergy Intermediate rash Verified 11/22/21 06:30 trazodone AdvReac Depression Verified 11/22/21 06:30 Home Medications Medication Instructions Recorded Confirmed Type aspirin 81 mg tablet,delayed 81 mg PO DAILY 06/09/20 11/22/21 History release (Adult Aspirin Regimen) cetirizine 10 mg tablet (Zyrtec) 10 mg PO DAILY PRN Allergy Symptoms 06/16/20 11/22/21 History cholecalciferol (vitamin D3) 50 50 mcg PO DAILY 06/16/20 11/22/21 History mcg (2,000 unit) tablet (Vitamin D3) multivit with minerals-iron 18 1 tablet PO DAILY 06/16/20 11/22/21 History mg-folic ac 400 mcg-vit K 25 mcg tablet (Adults Multivitamin) omega-3 fatty acids 1,000 mg PO DAILY 06/16/20 11/22/21 History atorvastatin 20 mg tablet See Rx Instructions .Route 09/25/21 11/22/21 Rx .COMPLEX #90 tabs levothyroxine 125 mcg tablet See Rx Instructions .Route 09/25/21 11/22/21 Rx .COMPLEX #90 tabs lisinopril 20 See Rx Instructions .Route 09/25/21 11/22/21 Rx mg-hydrochlorothiazide 12.5 mg .COMPLEX #90 tabs tablet metformin 1,000 mg tablet See Rx Instructions .Route 09/25/21 11/22/21 Rx .COMPLEX #180 tabs sertraline 100 mg tablet See Rx Instructions .Route 09/25/21 11/22/21 Rx .COMPLEX #90 tabs Laboratory Tests 11/22/21 06:48 POC Capillary Glucose 146 mg/dl H mg/dl (65-105) Patient hx anesthesia problems: none Family hx anesthesia problems: none Results Review: All pre-operative results and documents have been reviewed as part of the pre-operative evaluation. [facility] Past Medical History Medical History (Updated 11/08/21 @ 10:33 by Cynthia Nazario) Bilateral wrist pain CAD (coronary artery disease) Carpal tunnel syndrome Carpal tunnel syndrome, right COVID-19 Depression GERD (gastroesophageal reflux disease) Hyperlipidemia associated with type 2 diabetes mellitus Hypertension associated with diabetes Hypothyroidism IBS (irritable bowel syndrome) Left carpal tunnel syndrome Major depressive disorder, recurrent Obesity Obesity, Class II, BMI 35-39.9 Osteoarthritis of knee Reactive airway disease Type 2 diabetes mellitus Ulnar neuropathy at elbow of right upper extremity Surgical History Surgical History (Updated 11/08/21 @ 10:34 by Cynthia Nazario) History of adenoidectomy History of bilateral tubal ligation History of knee replacement LT total knee [address] Mondragon Rt TKA [address] Mondragon History of tonsillectomy [address] Cazares Family History Family History (Updated 11/08/21 @ 10:35 by Cynthia Nazario) Mother Depression Hypertension Family history of coronary artery disease Father Family history of coronary artery disease Sibling Family history of coronary artery disease Other Asthma Diabetes mellitus Family history of allergic disorder Family history of diabetes mellitus in first degree relative Family history of rheumatoid arthritis HLD (hyperlipidemia) Heart disease Social History Social History (Updated 11/08/21 @ 10:35 by Cynthia Nazario) Smoking status: Never smoker Alcohol intake: current Alcohol use details: very rarely Substance use: never Substance use type: does not use Living arrangements: alone 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
[2021-11-22] MEDS: KETOROLAC 15 MG/ML VIAL (*BKC) IV PUSH (07:11)
--- NOTE | 2021-11-22 07:12 | WPDHPUPDATE1 ---
History and Physical Update Update Date/Time: 11/22/21 07:12 History and Physical has been reviewed, including an updated exam of the patient. There are NO changes in the patient's condition. Risks, benefits, and alternatives have been discussed and questions answered. Patient agrees to proceed with procedure.
[2021-11-22 07:14] VITALS: BP 135/85; PULSE 79; RESP 16; TEMP 36.2; O2SAT 99
[2021-11-22] MEDS: ceFAZolin 2 GM/D5W 50 ML 2 GM/50 ML BAG IVPB (07:30)
[2021-11-22] MEDS: BUPIVACAINE/EPINEPHRINE 0.25% 50 ML VIAL 10 ML INFILTRATE (07:58)
--- NOTE | 2021-11-22 08:17 | W.PM.PROC2 ---
Procedure Note - Detailed Date of Procedure 11/22/21 Pre-op Diagnosis left carpal tunnel syndrome Post-op Diagnosis Same Procedure Performed Left carpal tunnel release Surgeon Narciso Flor MD Staff Physical Therapist 1st educational program assistant Anesthesia General Indications 61-year-old woman with left hand numbness and tingling. EMG nerve conduction study shows moderate carpal tunnel median nerve compression. Patient has failed conservative treatment and presents now for operative treatment. Findings Scar tissue associated with previous volar cyst excision with thickening of the flexor retinaculum and pressure on the median nerve. Description of Procedure Operative Indications: The patient has history, exam findings, and electrodiagnostic findings consistent with carpal tunnel syndrome. Conservative treatment with bracing/ splinting, activity modifications, medication, ergonomics, injections has failed. Symptoms are daily and affect ability to use hand. The patient desires operative treatment. Procedure: After informed consent was given, the operative extremity was marked in the preoperative holding area. Intravenous antibiotics were given. The patient was taken to the operating room and underwent general anesthesia by the anesthesia team. A time-out was performed confirming patient, procedure, and operative site. Local infiltrate at the carpal tunnel was done with 0.5% marcaine. Prepping and draping was done using chloraprep skin solution with usual surgical sterile technique. Anatomic landmarks marked on skin. Hand was exsanguinated and arm tourniquet inflated to 250mmHg. Incision was made with #15 blade knife in skin crease on volar palm. Hemostasis was achieved with electrocautery. Careful dissection was carried down to the transverse carpal ligament. Retractors were placed. Ligament overlying median nerve was incised in line with skin incision using hughes blade. Proximal and distal release was done with metzenbaum scissors under direct visualization. Mosquito clamp was placed deep to ligament to protect nerve during release. Thickening of the flexor retinaculum was noted from previous scar formation at the volar cyst surgery site. This was carefully dissected free from the soft tissue above and released under direct visualization with Metzenbaum scissors. The nerve was inspected and noted to be intact with mild flattening. Tendons had good excursion. The tourniquet was then released and pressure held. Bleeding points were coagulated with bipolar cautery. The wound was thoroughly irrigated with antibiotic solution. The skin was closed with 4-0 nylon interrupted suture. A sterile dressing was applied. Good capillary refill in the fingers and thumb was noted. The patient was transported to the recovery room in stable condition. All sponge, needle, instrument counts were correct at the end of the case. Estimated Blood Loss 2 Tourniquet Time 8 Drains No Packing No Pathology None sent Complications None Condition Stable Disposition PACU
[2021-11-22 08:18] VITALS: BP 110/71; PULSE 90; RESP 14; TEMP 36.4; O2SAT 95
[2021-11-22 08:30] VITALS: BP 106/57; PULSE 86; RESP 16; O2SAT 95
[2021-11-22 08:45] VITALS: BP 106/58; PULSE 77; RESP 12; O2SAT 94
[2021-11-22 08:49] LABS: Glucose Point of Care 163 mg/dl (65-105)
[2021-11-22 08:55] VITALS: BP 101/54; PULSE 76
[2021-11-22 09:25] VITALS: BP 100/67; PULSE 80; RESP 16
== END 2021-11-22 09:40 | disposition home or self-care (01) ==
PROVIDERS: PCP Family Medicine; Visit Provider Orthopaedic Surgery
PROC: (CPT 64721; principal; 2021-11-22 07:30)
DX: G56.02 Carpal tunnel syndrome, left upper limb (principal); E11.9 Type 2 diabetes mellitus without complications; E78.5 Hyperlipidemia, unspecified; E03.9 Hypothyroidism, unspecified; J45.909 Unspecified asthma, uncomplicated; I25.10 Atherosclerotic heart disease of native coronary artery without angina pectoris; K21.9 Gastro-esophageal reflux disease without esophagitis; F33.9 Major depressive disorder, recurrent, unspecified; K58.9 Irritable bowel syndrome, unspecified; Z79.82 Long term (current) use of aspirin; Z79.84 Long term (current) use of oral hypoglycemic drugs; E66.01 Morbid (severe) obesity due to excess calories; Z68.41 Body mass index [BMI] 40.0-44.9, adult
CPT/HCPCS: 64721; 82948; A9270; J0690; J1885; J2250; J2405; J2704; J3010; J7120

== ENCOUNTER 2021-12-27 16:13 | Outpatient (CLI) | payer OTHER, SELFPAY ==
[2021-12-27 16:44] LABS: Creatinine Urine 184.09 mg/dL (40-278); Hemoglobin A1C 6.8 % (<5.7); MALB Creatinine Ratio 9.1 mg/g (0-30); Microalbumin Urine Random 16.8 mg/L
[2021-12-27 16:47] LABS: Alanine Aminotransferase 37 U/L (14-59); Albumin Level 4.1 g/dL (3.4-5.0); Alkaline Phosphatase 76 U/L (46-116); Anion Gap 9 mmol/L (8-16); Aspartate Amino Transferase 19 U/L (15-37); Bilirubin,Total 0.3 mg/dL (0.00-1.00); Blood Urea Nitrogen 26 mg/dL (7-18); Calcium 9.3 mg/dL (8.5-10.1); Carbon Dioxide 26 mmol/L (21-32); Chloride 99 mmol/L (98-108); Cholesterol 158 mg/dL (0-200); Estimated Glomerular Filt Rate 52; Glucose 127 mg/dL (70-99); HDL Direct 57 mg/dL (40-60); LDL Cholesterol Calculated 46 mg/dL (<130); Osmolality Calculated 284 mOsm/kg (285-295); Potassium 4.7 mmol/L (3.5-5.1); Sodium 134 mmol/L (136-145); Total Protein 8.1 g/dL (6.4-8.2); Triglycerides 277 mg/dL (0-150)
[2021-12-27 16:56] LABS: Thyroid Stimulating Hormone Reflex 0.69 u/IU/mL (0.36-3.74)
== END 2021-12-27 16:14 | disposition home or self-care (01) ==
LOC: CHSLAB 16:15
PROVIDERS: PCP Family Medicine; Visit Provider Family Medicine
DX: E11.9 Type 2 diabetes mellitus without complications (principal)
CPT/HCPCS: 36415; 80053; 80061; 82043; 83036; 84443

== ENCOUNTER 2022-02-19 08:03 | Outpatient (CLI) | payer OTHER, SELFPAY ==
--- NOTE | ~2022-02-19 | MM_ITS ---
EXAMINATION: MM screening [facility] BI w evan HISTORY: Screening mammogram TECHNIQUE: Craniocaudal and mediolateral oblique 3-D tomosynthesis images were obtained and synthetic 2-D images were generated. CAD analysis was submitted and interpreted. COMPARISON: 01/08/2021, 01/19/2019, 01/12/2019 BREAST PARENCHYMAL COMPOSITION: There are scattered areas of fibroglandular density. FINDINGS: Stable right breast masses are considered benign given the lack of interval change. No susp icious mass, calcification, or architectural distortion are identified in either breast to suggest ma lignancy. There has been no suspicious interval change. IMPRESSION: 1. No mammographic evidence of malignancy. 2. Recommend routine screening mammography in one year. BI-RADS Category 2: Benign finding(s). Reviewed, dictated and finalized at location A. 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
== END 2022-02-19 08:04 | disposition home or self-care (01) ==
LOC: CHSIMG 08:06
PROVIDERS: PCP Family Medicine; Visit Provider Family Medicine
DX: Z12.31 Encounter for screening mammogram for malignant neoplasm of breast (principal)
CPT/HCPCS: 77063; 77067

== ENCOUNTER 2022-12-26 17:32 | Outpatient (CLI) | payer OTHER, SELFPAY ==
[2022-12-26 18:32] LABS: Free T4 Free Thyroxine 1.35 ng/dL (0.76-1.46); Thyroid Stimulating Hormone 0.13 uIU/mL (0.36-3.74)
== END 2022-12-26 17:33 | disposition home or self-care (01) ==
LOC: CHSLAB 17:33
PROVIDERS: PCP Family Medicine; Visit Provider Family Medicine
DX: E03.9 Hypothyroidism, unspecified (principal)
CPT/HCPCS: 36415; 84439; 84443

== ENCOUNTER 2023-01-23 15:22 | Outpatient (CLI) | payer OTHER, SELFPAY ==
[2023-01-23 15:33] LABS: Basophils Absolute Auto 0.06 K/mm3 (0.00-0.10); Basophils Percent Auto 0.8 % (0.0-1.0); Eosinophils Absolute Auto 0.37 K/mm3 (0.02-0.50); Eosinophils Percent Auto 4.7 % (1.0-6.0); Hematocrit 39.1 % (35.0-49.0); Hemoglobin 12.6 g/dL (12.0-15.0); Immature Granulocyte Absolute 0.02 K/mm3 (0.00-0.00); Immature Granulocyte Percent A 0.3 % (0.0-0.0); Lymphocytes Absolute Auto 2.55 K/mm3 (1.10-4.50); Lymphocytes Percent Auto 32.7 % (18.0-42.0); Mean Corpuscular HGB Conc 32.2 g/dL (32.0-36.0); Mean Corpuscular Hemoglobin 26.9 pg (27.0-31.0); Mean Corpuscular Volume 83.4 fL (78.0-102.0); Mean Platelet Volume 9.6 fl (9.2-11.8); Monocytes Percent Auto 6.4 % (2.0-11.0); Neutrophils Absolute Auto 4.3 K/mm3 (1.7-7.2); Neutrophils Percent Auto 55.1 % (50.0-70.0); Platelet Count Result 297 K/mm3 (150-420); Red Blood Count 4.69 M/mm3 (4.20-5.40); Red Cell Distribution Width 13.7 % (11.6-14.4); White Blood Count 7.8 K/mm3 (4.8-10.8)
[2023-01-23 16:05] LABS: Alanine Aminotransferase 41 U/L (14-59); Alkaline Phosphatase 78 U/L (46-116); Anion Gap 9 mmol/L (8-16); Aspartate Amino Transferase 20 U/L (15-37); Bilirubin,Total 0.4 mg/dL (0.00-1.00); Blood Urea Nitrogen 25 mg/dL (7-18); Calcium 9.7 mg/dL (8.5-10.1); Carbon Dioxide 29 mmol/L (21-32); Chloride 100 mmol/L (98-108); Cholesterol 133 mg/dL (0-200); Estimated Glomerular Filt Rate > 60; Glucose 97 mg/dL (70-99); HDL Direct 65 mg/dL (40-60); LDL Cholesterol Calculated 44 mg/dL (<130); Osmolality Calculated 290 mOsm/kg (285-295); Potassium 4.3 mmol/L (3.5-5.1); Sodium 138 mmol/L (136-145); Total Protein 7.7 g/dL (6.4-8.2); Triglycerides 120 mg/dL (0-150)
== END 2023-01-23 15:23 | disposition home or self-care (01) ==
LOC: CHSLAB 15:24
PROVIDERS: PCP Family Medicine; Visit Provider Family Medicine
DX: I25.10 Atherosclerotic heart disease of native coronary artery without angina pectoris (principal)
CPT/HCPCS: 36415; 80053; 80061; 85025

== ENCOUNTER 2023-02-21 08:29 | Outpatient (CLI) | payer OTHER, SELFPAY ==
--- NOTE | ~2023-02-21 | MM_ITS ---
EXAMINATION: MM screening [facility] BI w evan HISTORY: Screening mammogram TECHNIQUE: Craniocaudal and mediolateral oblique 3-D tomosynthesis images were obtained and synthetic 2-D images were generated. CAD analysis was submitted and interpreted. COMPARISON: 02/19/2022 bilateral screening mammogram 01/08/2021 diagnostic bilateral mammogram and limited right breast ultrasound 01/19/2019 diagnostic right mammogram and right breast ultrasound 01/12/2019 bilateral screening mammogram BREAST PARENCHYMAL COMPOSITION: There are scattered areas of fibroglandular density. FINDINGS: Stable circumscribed approximately 6 mm mass with solitary benign circular calcification is noted in the mid to lower inner right breast, not significantly changed since 01/12/2019. No other s ignificant new or developing density is noted since 2019. There are occasional bilateral benign calcifications. There is no evidence of suspicious mass, calcif ication, or architectural distortion to suggest malignancy in either breast. There has been no suspic ious interval change. IMPRESSION: 1. Benign findings. No mammographic evidence of malignancy. 2. Recommend routine screening mammography in one year. BI-RADS Category 2: Benign finding(s). Reviewed, dictated and finalized at location A. DRIVER
== END 2023-02-21 08:30 | disposition home or self-care (01) ==
PROVIDERS: PCP Family Medicine; Visit Provider Family Medicine
DX: Z12.31 Encounter for screening mammogram for malignant neoplasm of breast (principal)
CPT/HCPCS: 77063; 77067

== ENCOUNTER 2023-10-24 12:38 | Outpatient (CLI) | payer OTHER, SELFPAY ==
--- NOTE | ~2023-10-24 | CT_ITS ---
EXAMINATION: CT brain wo con DATE: 10/24/2023 13:28 INDICATION: Head injury. TECHNIQUE: Computed tomography (CT) of the head was performed without intravenous contrast. The mA wa s adjusted according to patient size. Iterative reconstruction technique was employed. The dose-lengt h product was 529.67 mGy-cm. COMPARISON: None FINDINGS: There are scattered areas of low attenuation in the cerebral white matter. There is no intr acranial hemorrhage, acute infarction, or abnormal intracranial mass lesion. The ventricles are kei l in size. There is cavum septum callosum and vergae. The paranasal sinuses are clear. The orbits are normal. The mastoid air cells are normal. There is right frontal scalp soft tissue swelling. IMPRESSION: 1. Moderate nonspecific cerebral white matter disease, which likely represents chronic small vessel i schemic disease. Reviewed, dictated and finalized at location A. IMPRESSION: 1. Moderate nonspecific cerebral white matter disease, which likely represents chronic small vessel ischemic disease.
[2023-10-24 12:50] LABS: Basophils Absolute Auto 0.04 K/mm3 (0.00-0.10); Basophils Percent Auto 0.6 % (0.0-1.0); Eosinophils Percent Auto 1.5 % (1.0-6.0); Hematocrit 42.4 % (35.0-49.0); Hemoglobin 14.5 g/dL (12.0-15.0); Immature Granulocyte Absolute 0.03 K/mm3 (0.00-0.00); Immature Granulocyte Percent A 0.4 % (0.0-0.0); Lymphocytes Absolute Auto 1.37 K/mm3 (1.10-4.50); Mean Corpuscular HGB Conc 34.2 g/dL (32-36); Mean Corpuscular Hemoglobin 28.5 pg (27.0-31.0); Mean Corpuscular Volume 83.5 fL (78.0-102.0); Mean Platelet Volume 9.2 fl (9.2-11.8); Monocytes Absolute Auto 0.45 K/mm3 (0.10-0.90); Monocytes Percent Auto 6.6 % (2.0-11.0); Neutrophils Absolute Auto 4.86 K/mm3 (1.70-7.20); Neutrophils Percent Auto 70.9 % (50.0-70.0); Platelet Count Result 322 K/mm3 (150-420); Red Blood Count 5.08 M/mm3 (4.20-5.40); Red Cell Distribution Width 12.8 % (11.6-14.4); White Blood Count 6.9 K/mm3 (4.8-10.8)
[2023-10-24 13:08] LABS: Hemoglobin A1C 5.2 % (<5.7)
[2023-10-24 14:13] LABS: Alanine Aminotransferase 52 U/L (14-59); Albumin Level 4.4 g/dL (3.4-5.0); Alkaline Phosphatase 70 U/L (46-116); Anion Gap 10 mmol/L (4-12); Aspartate Amino Transferase 23 U/L (15-37); Bilirubin,Total 0.6 mg/dL (0.00-1.00); Blood Urea Nitrogen 26 mg/dL (7-18); Calcium 9.8 mg/dL (8.5-10.1); Carbon Dioxide 28 mmol/L (21-32); Chloride 98 mmol/L (98-108); Cholesterol 229 mg/dL (0-200); Estimated Glomerular Filt Rate > 60; Glucose 101 mg/dL (70-99); HDL Direct 82 mg/dL (40-60); LDL Cholesterol Calculated 137 mg/dL (<130); Osmolality Calculated 286 mOsm/kg (285-295); Potassium 4.5 mmol/L (3.5-5.1); Sodium 136 mmol/L (136-145); Total Protein 8.1 g/dL (6.4-8.2); Triglycerides 51 mg/dL (0-150)
[2023-10-24 14:18] LABS: Thyroid Stimulating Hormone Reflex 0.29 u/IU/mL (0.36-3.74)
[2023-10-24 14:42] LABS: Free T4 Free Thyroxine Reflex 1.31 ng/dL (0.76-1.46)
== END 2023-10-24 12:39 | disposition home or self-care (01) ==
PROVIDERS: PCP Nurse Practitioner Family; Visit Provider Nurse Practitioner Family
DX: Z00.00 Encounter for general adult medical examination without abnormal findings (principal); S09.90XA Unspecified injury of head, initial encounter; R90.82 White matter disease, unspecified
CPT/HCPCS: 36415; 70450; 80053; 80061; 83036; 84439; 84443; 85025

== ENCOUNTER 2023-12-13 20:28 | Outpatient (CLI) | payer OTHER, SELFPAY ==
[2023-12-13 22:05] LABS: Thyroid Stimulating Hormone Reflex 0.15 u/IU/mL (0.36-3.74)
== END 2023-12-13 20:29 | disposition home or self-care (01) ==
PROVIDERS: PCP Nurse Practitioner Family; Visit Provider Nurse Practitioner Family
DX: E03.9 Hypothyroidism, unspecified (principal)
CPT/HCPCS: 36415; 84439; 84443

== ENCOUNTER 2024-01-14 15:43 | Outpatient (CLI) | payer OTHER, SELFPAY ==
[2024-01-14 15:59] LABS: MALB Creatinine Ratio 22.8 mg/g (0-30); Microalbumin Urine Random < 13.0 mg/L
[2024-01-14 16:00] LABS: Hemoglobin A1C 5.2 % (<5.7)
== END 2024-01-14 15:44 | disposition home or self-care (01) ==
LOC: CHSLAB 15:44
PROVIDERS: PCP Family Medicine; Visit Provider Family Medicine
DX: E11.9 Type 2 diabetes mellitus without complications (principal)
CPT/HCPCS: 36415; 82043; 83036

== ENCOUNTER 2024-02-05 16:59 | Outpatient (CLI) | payer OTHER, SELFPAY ==
[2024-02-05 17:44] LABS: Cholesterol 228 mg/dL (0-200); HDL Direct 67 mg/dL (40-60); LDL Cholesterol Calculated 125 mg/dL (<130); Thyroid Stimulating Hormone 2.58 uIU/mL (0.36-3.74); Triglycerides 178 mg/dL (0-150)
== END 2024-02-05 17:00 | disposition home or self-care (01) ==
LOC: CHSLAB 17:01
PROVIDERS: PCP Family Medicine; Visit Provider Nurse Practitioner Family
DX: E03.9 Hypothyroidism, unspecified (principal); E78.5 Hyperlipidemia, unspecified
CPT/HCPCS: 36415; 80061; 84443

== ENCOUNTER 2024-02-24 07:37 | Outpatient (CLI) | payer OTHER, SELFPAY ==
--- NOTE | ~2024-02-24 | MM_ITS ---
EXAMINATION: MM screening [facility] BI w evan HISTORY: Screening TECHNIQUE: Craniocaudal and mediolateral oblique 3-D tomosynthesis images were obtained and synthetic 2-D images were generated. CAD analysis was submitted and interpreted. COMPARISON: Comparison to multiple prior studies sequentially, with oldest reviewed study dated 12/23. BREAST PARENCHYMAL COMPOSITION: Not dense: There are scattered areas of fibroglandular density. FINDINGS: There are developing nodular asymmetries in both breasts. There are no suspicious calcifica tions. IMPRESSION: 1. Developing nodular asymmetries bilaterally. 2. Additional mammographic views and possible breast ultrasound are recommended. BI-RADS Category 0: Incomplete: Needs additional imaging evaluation. Reviewed, dictated and finalized at location B. 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 Developing nodular asymmetries bilaterally. 2. Additional mammographic views and possible breast ultrasound are recommended . BI-RADS Category 0: Incomplete: Needs additional imaging evaluation.
== END 2024-02-24 07:38 | disposition home or self-care (01) ==
PROVIDERS: PCP Family Medicine; Visit Provider Family Medicine
DX: Z12.31 Encounter for screening mammogram for malignant neoplasm of breast (principal)
CPT/HCPCS: 77063; 77067

== ENCOUNTER 2024-02-27 09:22 | Outpatient (CLI) | payer OTHER, SELFPAY ==
--- NOTE | ~2024-02-27 | MMUS_ITS ---
EXAMINATION: MM diagnostic [facility] BI w evan, US breast BI complete HISTORY: Not dense: There are scattered areas of fibroglandular density. TECHNIQUE: Additional 3-D tomosynthesis images of the breasts were performed and synthetic 2-D images were generated. CAD analysis was submitted and interpreted. High resolution complete bilateral breas t ultrasound was performed. COMPARISON: Comparison to multiple prior studies sequentially, with oldest reviewed study dated 12/23. BREAST PARENCHYMAL COMPOSITION: Not dense: There are scattered areas of fibroglandular density. FINDINGS: MAMMOGRAPHIC FINDINGS: There is a stable low-density mass in the medial aspect of the right breast at approximately 3:00. Th ere is no mammographic evidence for malignancy in the left breast. ULTRASOUND: Complete US of all 4 quadrants of the breast/s and retroareolar region was reviewed. In the right breast at 3:00, 3 cm from the nipple there is a 7 mm cyst corresponding to the mammograp hic finding. No suspicious masses in either breast to suggest malignancy. IMPRESSION: 1. No evidence for malignancy in either breast. 2. Routine yearly screening mammogram and regular clinical breast examination are recommended. BI-RADS Category 2: Benign finding(s). Reviewed, dictated and finalized at location B. CTOR OF OUTREACH IMPRESSION: 1. No evidence for malignancy in either breast. 2. Routine yearly screening mammogram and regular clinical breast examination a re recommended. BI-RADS Category 2: Benign finding(s).
== END 2024-02-27 09:23 | disposition home or self-care (01) ==
LOC: CHSIMG 09:24
PROVIDERS: PCP Family Medicine; Visit Provider Family Medicine
DX: R92.8 Other abnormal and inconclusive findings on diagnostic imaging of breast (principal)
CPT/HCPCS: 76641; 77062; 77066; G0279

== ENCOUNTER 2024-05-05 10:22 | Outpatient (CLI) | payer OTHER, SELFPAY ==
[2024-05-05 11:11] LABS: Alanine Aminotransferase 56 U/L (14-59); Albumin Level 4.2 g/dL (3.4-5.0); Alkaline Phosphatase 78 U/L (46-116); Anion Gap 10 mmol/L (4-12); Aspartate Amino Transferase 31 U/L (15-37); Bilirubin,Total 0.5 mg/dL (0.00-1.00); Blood Urea Nitrogen 18 mg/dL (7-18); Calcium 9.3 mg/dL (8.5-10.1); Carbon Dioxide 30 mmol/L (21-32); Chloride 102 mmol/L (98-108); Estimated Glomerular Filt Rate > 60; Glucose 95 mg/dL (70-99); Osmolality Calculated 295 mOsm/kg (285-295); Potassium 4.2 mmol/L (3.5-5.1); Sodium 142 mmol/L (136-145); Total Protein 7.8 g/dL (6.4-8.2)
[2024-05-05 11:12] LABS: Cholesterol 132 mg/dL (0-200); HDL Direct 69 mg/dL (40-60); LDL Cholesterol Calculated 32 mg/dL (<130); Triglycerides 155 mg/dL (0-150)
[2024-05-08 03:23] LABS: Immunoglobulin A 208 mg/dL (70-320); TTG IGA AB <1.0 U/mL
== END 2024-05-05 10:23 | disposition home or self-care (01) ==
PROVIDERS: Nurse Practitioner Family; PCP Family Medicine; Visit Provider Family Medicine
DX: E78.5 Hyperlipidemia, unspecified (principal); R14.0 Abdominal distension (gaseous)
CPT/HCPCS: 36415; 80053; 80061; 82784; 83516; 86003

== ENCOUNTER 2024-05-31 08:43 | Outpatient (CLI) | payer OTHER, SELFPAY ==
--- NOTE | ~2024-05-31 | CT_ITS ---
CT of the Abdomen and Pelvis: Indication: Epigastric Technique: 2.5 mm axial scans were obtained through the abdomen and pelvis following intravenous adm inistration of 100 cc of Omnipaque 350. Dose reduction technique was used on this scan by utilizing a utomated exposure control and iterative reconstruction technique. The dose-length product (DLP) was 7 20.49 mGy-cm. Findings: Scans through the lung bases are unremarkable. The liver, spleen, pancreas, gallbladder, adrenals and kidneys are within normal limits. There are at herosclerotic calcifications of the aorta. No lymphadenopathy. No bowel obstruction or bowel wall thickening. Extensive stool suggests constipation. Images through the pelvis were performed. Urinary bladder unremarkable. No pelvic mass evident. No as cites. Impression: Constipation. Reviewed, dictated and finalized at location M. Impression: Constipation.
== END 2024-05-31 08:44 | disposition home or self-care (01) ==
LOC: CHSIMG 08:44
PROVIDERS: PCP Family Medicine; Visit Provider Nurse Practitioner
DX: R10.13 Epigastric pain (principal); R14.0 Abdominal distension (gaseous); K59.00 Constipation, unspecified
CPT/HCPCS: 74177; Q9967

== ENCOUNTER 2024-06-23 00:34 | Day surgery (SDC) | payer OTHER, SELFPAY ==
[2024-06-14 11:42] VITALS: BMI 29.7
[2024-06-23 12:43] VITALS: BP 141/73; PULSE 64; RESP 18; TEMP 35.7; O2SAT 100
[2024-06-23] MEDS: LACTATED RINGERS 1,000 ML 150 ML IV CONT (13:01)
--- NOTE | 2024-06-23 13:17 | WPDANESEPPF ---
Anes - Initial Pre Proc Eval Procedure: Operation Date: 06/23/24 13:30 Proposed Procedures p Esophagogastroduodenoscopy & Colonoscopy - Agusto Granados MD Date/Time: 06/23/24 13:17 Surgeon: Agusto Granados MD Pre Op Diagnosis: Family Hx of neoplasm, Abdominal distension Patient Data Age: 64 Gender: F Height: 1.7 m Weight: 85 kg Last Vital Signs Temp 35.7 C L 06/23/24 12:43 Pulse 64 06/23/24 12:43 Resp 18 06/23/24 12:43 BP 141/73 H 06/23/24 12:43 Pulse Ox 100 06/23/24 12:43 O2 Del Method Room Air 06/23/24 12:43 Allergies Allergy/AdvReac Type Severity Reaction Status Date / Time Penicillins Allergy Intermediate rash Verified 06/23/24 12:41 trazodone AdvReac Depression Verified 06/23/24 12:41 Home Medications ?Medication ?Instructions ?Recorded ?Confirmed ?Type aspirin 81 mg tablet,delayed 81 mg PO DAILY 06/09/20 06/23/24 History release (Adult Aspirin Regimen) cetirizine 10 mg tablet (Zyrtec) 10 mg PO DAILY PRN Allergy Symptoms 06/16/20 06/23/24 History cholecalciferol (vitamin D3) 50 50 mcg PO DAILY 06/16/20 06/23/24 History mcg (2,000 unit) tablet (Vitamin D3) multivit with minerals-iron 18 1 tablet PO DAILY 06/16/20 06/23/24 History mg-folic ac 400 mcg-vit K 25 mcg tablet (Adults Multivitamin) omega-3 fatty acids 1,000 mg PO DAILY 06/16/20 06/23/24 History simethicone 180 mg capsule (Gas 180 mg PO BID PRN abdominal 10/27/23 06/14/24 Rx Relief (simethicone)) distention #60 caps atorvastatin 40 mg tablet 40 mg PO QHS #90 tabs 04/21/24 06/23/24 Rx levothyroxine 75 mcg tablet See Rx Instructions .Route 04/21/24 06/23/24 Rx .COMPLEX #70 tabs sertraline 100 mg tablet See Rx Instructions .Route 04/21/24 06/23/24 Rx .COMPLEX #90 tabs linaclotide 145 mcg capsule 145 mcg PO DAILY 1 month #30 caps 05/31/24 06/23/24 Rx (Linzess) Patient hx anesthesia problems: none Family hx anesthesia problems: none Results Review: All pre-operative results and documents have been reviewed as part of the pre-operative evaluation. [facility] Past Medical History Medical History Depression IBS (irritable bowel syndrome) GERD (gastroesophageal reflux disease) Carpal tunnel syndrome, right Left carpal tunnel syndrome Bilateral wrist pain Ulnar neuropathy at elbow of right upper extremity Carpal tunnel syndrome CAD (coronary artery disease) Obesity Reactive airway disease COVID-19 Obesity, Class II, BMI 35-39.9 Major depressive disorder, recurrent Hyperlipidemia associated with type 2 diabetes mellitus Hypertension associated with diabetes Type 2 diabetes mellitus Osteoarthritis of knee Hypothyroidism Surgical History Surgical History History of carpal tunnel surgery of left wrist History of bilateral tubal ligation History of knee replacement LT total knee [address] Mondragon Rt TKA [address] Mondragon History of adenoidectomy History of tonsillectomy [address] Cazares Family History Family History Mother Depression Hypertension Family history of coronary artery disease Father Family history of coronary artery disease Sibling Family history of coronary artery disease Other Asthma Diabetes mellitus Family history of allergic disorder Family history of diabetes mellitus in first degree relative Family history of rheumatoid arthritis HLD (hyperlipidemia) Heart disease Social History Social History Smoking status: Never smoker Alcohol intake: current Alcohol use details: RARELY Substance use: never Substance use type: does not use Lack of Transportation: No Lack of Food: Never True Current Housing: I Have Housing Concerned About Future Housing: No Difficulty Paying Gas/Electric Bills: No Difficulty Paying for Meds: No Currently Unemployed: No Education: Bachelor's Degree Difficulty w/ Childcare or Family Care: No Living arrangements: alone Occupation/Education: occupation 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 Informed Consent: The patient's anesthetic plan and its attendant risks and benefits were discussed with the patient/family/POA. Questions were solicited and answers provided to the satisfaction of the patient/family/POA.
--- NOTE | 2024-06-23 13:19 | PM.IMHP ---
H&P: HPI History of Present Illness Date/Time: 06/23/24 13:19 Chief Complaint: Abdominal discomfort - dyspepsia- rectal bleeding Narrative: the patient has been complaining of chronic constipation for years, requiring sometimes the use of laxatives and Linzess. There is significant bloating and borborygmi. In addition, she has noticed occasional bright red blood per rectum. There is a family history of Granado syndrome in 2 uncles and grandfather. The last colonoscopy was more than 10 years ago. Review of Systems Review of Systems: All systems reviewed & are unremarkable except as noted in HPI and below PMFSH Past Medical History Medical History Depression IBS (irritable bowel syndrome) GERD (gastroesophageal reflux disease) Carpal tunnel syndrome, right Left carpal tunnel syndrome Bilateral wrist pain Ulnar neuropathy at elbow of right upper extremity Carpal tunnel syndrome CAD (coronary artery disease) Obesity Reactive airway disease COVID-19 Obesity, Class II, BMI 35-39.9 Major depressive disorder, recurrent Hyperlipidemia associated with type 2 diabetes mellitus Hypertension associated with diabetes Type 2 diabetes mellitus Osteoarthritis of knee Hypothyroidism Surgical History Surgical History History of carpal tunnel surgery of left wrist History of bilateral tubal ligation History of knee replacement LT total knee [address] Mondragon Rt TKA [address] Mondragon History of adenoidectomy History of tonsillectomy [address] Cazares Family History Family History Mother Depression Hypertension Family history of coronary artery disease Father Family history of coronary artery disease Sibling Family history of coronary artery disease Other Asthma Diabetes mellitus Family history of allergic disorder Family history of diabetes mellitus in first degree relative Family history of rheumatoid arthritis HLD (hyperlipidemia) Heart disease Social History Social History Smoking status: Never smoker Alcohol intake: current Alcohol use details: RARELY Substance use: never Substance use type: does not use Lack of Transportation: No Lack of Food: Never True Current Housing: I Have Housing Concerned About Future Housing: No Difficulty Paying Gas/Electric Bills: No Difficulty Paying for Meds: No Currently Unemployed: No Education: Bachelor's Degree Difficulty w/ Childcare or Family Care: No Living arrangements: alone Occupation/Education: occupation 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[employer] Gender identity (if verbalized by the patient): Female Spiritual care concerns: No Meds Home Medications and Allergies Home Medications ?Medication ?Instructions ?Recorded ?Confirmed ?Type aspirin 81 mg tablet,delayed 81 mg PO DAILY 06/09/20 06/23/24 History release (Adult Aspirin Regimen) cetirizine 10 mg tablet (Zyrtec) 10 mg PO DAILY PRN Allergy Symptoms 06/16/20 06/23/24 History cholecalciferol (vitamin D3) 50 50 mcg PO DAILY 06/16/20 06/23/24 History mcg (2,000 unit) tablet (Vitamin D3) multivit with minerals-iron 18 1 tablet PO DAILY 06/16/20 06/23/24 History mg-folic ac 400 mcg-vit K 25 mcg tablet (Adults Multivitamin) omega-3 fatty acids 1,000 mg PO DAILY 06/16/20 06/23/24 History simethicone 180 mg capsule (Gas 180 mg PO BID PRN abdominal 10/27/23 06/14/24 Rx Relief (simethicone)) distention #60 caps atorvastatin 40 mg tablet 40 mg PO QHS #90 tabs 04/21/24 06/23/24 Rx levothyroxine 75 mcg tablet See Rx Instructions .Route 04/21/24 06/23/24 Rx .COMPLEX #70 tabs sertraline 100 mg tablet See Rx Instructions .Route 04/21/24 06/23/24 Rx .COMPLEX #90 tabs linaclotide 145 mcg capsule 145 mcg PO DAILY 1 month #30 caps 05/31/24 06/23/24 Rx (Linzess) Allergies Allergy/AdvReac Type Severity Reaction Status Date / Time Penicillins Allergy Intermediate rash Verified 06/23/24 12:41 trazodone AdvReac Depression Verified 06/23/24 12:41 Vital Signs Vital Signs - 24 hr 06/23/24 12:43 Temperature 96.3 F L Pulse Rate 64 Respiratory Rate 18 Blood Pressure 141/73 H Pulse Oximetry 100 Oxygen Delivery Room Air Exam Const: General: cooperative and healthy appearing Resp: Effort & Inspection: normal respiratory effort and able to speak in complete sentences Auscultation: clear to auscultation bilaterally Cardio: Rate: regular rate Rhythm: regular rhythm GI: Inspection: normal to inspection GI Palp: No No hepatosplenomegaly present Auscultation: normal bowel sounds Rectal Exam: deferred Skin: General skin exam: normal color Psych: Appearance: grossly normal Mental Status: mental status grossly normal Assessment and Plan Assessment and plan (1) Epigastric pain: Code(s): R10.13 - Epigastric pain Status: Acute Assessment and Plan: The patient is deemed a good candidate for the procedures. Consent signed. Will proceed. (2) Nausea: Code(s): R11.0 - Nausea Status: Acute
--- NOTE | 2024-06-23 13:35 | SUR.OPER ---
EGD END: 1333 COLONOSCOPY START: 1338
[2024-06-23 14:00] VITALS: BP 83/48; PULSE 62; RESP 18; O2SAT 100
[2024-06-23 14:10] VITALS: BP 108/73; PULSE 65; RESP 18; O2SAT 100
[2024-06-23 14:20] VITALS: BP 113/76; PULSE 62; RESP 18; O2SAT 100
== END 2024-06-23 14:32 | disposition home or self-care (01) ==
PROVIDERS: PCP Family Medicine; Referring Provider Nurse Practitioner; Visit Provider Internal Medicine Gastroenterology
PROC: 0DJ08ZZ Inspection of Upper Intestinal Tract, Via Natural or Artificial Opening Endoscopic (ICD-10-PCS; CPT 45378; principal; 2024-06-23 13:30)
DX: K64.8 Other hemorrhoids (principal); K21.9 Gastro-esophageal reflux disease without esophagitis; E78.5 Hyperlipidemia, unspecified; I10 Essential (primary) hypertension; E11.9 Type 2 diabetes mellitus without complications; E03.9 Hypothyroidism, unspecified; K58.9 Irritable bowel syndrome, unspecified; I25.10 Atherosclerotic heart disease of native coronary artery without angina pectoris; J45.909 Unspecified asthma, uncomplicated; F33.9 Major depressive disorder, recurrent, unspecified; G56.03 Carpal tunnel syndrome, bilateral upper limbs; M17.10 Unilateral primary osteoarthritis, unspecified knee; Z79.82 Long term (current) use of aspirin; Z98.890 Other specified postprocedural states; Z98.51 Tubal ligation status; Z80.0 Family history of malignant neoplasm of digestive organs; Z82.49 Family history of ischemic heart disease and other diseases of the circulatory system
CPT/HCPCS: 43239; 45378; 88305; J2003; J2704; J7120

== ENCOUNTER 2024-10-13 14:45 | Outpatient (CLI) | payer OTHER, SELFPAY ==
[2024-10-13 15:06] LABS: Hematocrit 40.0 % (35.0-49.0); Hemoglobin 13.4 g/dL (12.0-15.0); Immature Granulocyte Percent A 0.2 % (0.0-0.0); Lymphocytes Absolute Auto 1.73 K/mm3 (1.10-4.50); Mean Corpuscular HGB Conc 33.5 g/dL (32-36); Mean Corpuscular Hemoglobin 28.8 pg (27.0-31.0); Mean Corpuscular Volume 85.8 fL (78.0-102.0); Nucleated Red Blood Cells Absolute Auto 0.00 K/mm3 (0.00-0.00); Nucleated Red Blood Cells Perc 0.0 % (0-0.0); Platelet Count Result 270 K/mm3 (150-420); Red Blood Count 4.66 M/mm3 (4.20-5.40); White Blood Count 4.9 K/mm3 (4.8-10.8)
[2024-10-13 15:26] LABS: Alanine Aminotransferase 48 U/L (6-35); Albumin Level 4.4 g/dL (3.5-5.1); Alkaline Phosphatase 60 U/L (38-126); Anion Gap 4 mmol/L (4-12); Aspartate Amino Transferase 42 U/L (14-36); Bilirubin,Total 0.6 mg/dL (0.2-1.3); Blood Urea Nitrogen 19 mg/dL (7-17); CRP < 0.5 mg/dL (<1.0); Calcium 9.3 mg/dL (8.4-10.2); Carbon Dioxide 26 mmol/L (22-30); Chloride 106 mmol/L (98-107); Estimated Glomerular Filt Rate > 60; Glucose 108 mg/dL (65-110); Osmolality Calculated 285 mOsm/kg (285-295); Potassium 4.5 mmol/L (3.4-5.0); Sodium 136 mmol/L (137-145); Total Protein 7.4 g/dL (6.3-8.2)
[2024-10-13 15:55] LABS: Thyroid Stimulating Hormone Reflex 2.980 uIU/mL (0.465-4.68)
[2024-10-13 16:29] LABS: Vitamin B12 818.0 pg/mL (239-931)
== END 2024-10-13 14:46 | disposition home or self-care (01) ==
PROVIDERS: PCP Family Medicine; Visit Provider Family Medicine
DX: I25.10 Atherosclerotic heart disease of native coronary artery without angina pectoris (principal); E03.9 Hypothyroidism, unspecified; E53.8 Deficiency of other specified B group vitamins
CPT/HCPCS: 36415; 80053; 82306; 82607; 82746; 84443; 85025; 86140

== ENCOUNTER 2025-03-09 09:19 | Outpatient (CLI) | payer MEDICARE, SELFPAY ==
--- NOTE | ~2025-03-09 | MM_ITS ---
EXAMINATION: MM screening sumi BI w evan HISTORY: Screening TECHNIQUE: Craniocaudal and mediolateral oblique 3-D tomosynthesis images were obtained and synthetic 2-D images were generated. CAD analysis was submitted and interpreted. COMPARISON: Comparison to multiple prior studies sequentially, with oldest reviewed study dated , 01/12/2019 BREAST PARENCHYMAL COMPOSITION: Not Dense: There are scattered areas of fibroglandular density. FINDINGS: There is no evidence of suspicious mass, calcification, or architectural distortion to suggest malignancy in either breast. IMPRESSION: 1. No mammographic evidence of malignancy. 2. Recommend routine screening mammography in one year. BI-RADS Category 1: Negative Reviewed, dictated and finalized at location A. R OFF
== END 2025-03-09 09:20 | disposition home or self-care (01) ==
PROVIDERS: PCP Family Medicine; Visit Provider Family Medicine
DX: Z12.31 Encounter for screening mammogram for malignant neoplasm of breast (principal)
CPT/HCPCS: 77063; 77067